=== PATIENT | male | born 1985 | race Caucasian/White ===

== ENCOUNTER 2023-11-06 07:05 | Day surgery (SDC) | payer OTHER ==
[2023-10-26 12:31] LABS: BASOPHILS # (AUTO) 0.1 X10'3 (0-0.2); EOSINOPHILS # (AUTO) 0.3 X10'3 (0-0.9); MEAN CORPUSCULAR HGB CONC 33.6 g/dL (33.0-36.5); PRE OP HEMOGLOBIN 15.7 g/dL (14.0-17.9); RED CELL DISTRIBUTION WIDTH 13.8 % (11.5-14.5)
[2023-10-26 12:36] LABS: BASOPHILS % (AUTO) 0.9 % (0-1); EOSINOPHILS % (AUTO) 3.9 % (0-6); LYMPHOCYTES # (AUTO) 1.5 X10'3 (1.1-4.8); LYMPHOCYTES % (AUTO) 21.3 % (21-51); MEAN CORPUSCULAR HEMOGLOBIN 29.2 PG (27.0-31.0); MEAN CORPUSCULAR VOLUME 86.9 FL (78-98); MEAN PLATELET VOLUME 8.2 FL (7.4-10.4); MONOCYTES # (AUTO) 0.4 X10'3 (0-0.9); MONOCYTES % (AUTO) 5.2 % (2-12); NEUTROPHILS # (AUTO) 4.9 X10'3 (1.8-7.7); NEUTROPHILS % (AUTO) 68.7 % (42-75); PRE OP HEMATOCRIT 46.8 % (42.0-52.0); PRE OP PLATELET COUNT 157 X10'3 (140-440); PRE OP WHITE BLOOD COUNT 7.1 10'3 (4.8-10.8); RED BLOOD COUNT 5.39 X10'6 (4.70-6.10)
[2023-10-26 12:58] LABS: ALBUMIN 3.9 G/DL (3.4-5.0); ALBUMIN/GLOBULIN RATIO 1.1 (1.1-1.5); ALKALINE PHOSPHATASE 69 IU/L (46-116); BLOOD UREA NITROGEN 13 MG/DL (7-18); BUN/CREATININE RATIO 15.3 (10.0-20.0); CALCIUM 9.4 MG/DL (8.5-10.1); CHLORIDE 108 MMOL/L (99-107); CREATININE 0.85 MG/DL (0.60-1.10); PRE OP ALT 35 U/L (30-65); PRE OP ANION GAP 6 (8-16); PRE OP AST 18 U/L (10-37); PRE OP BILIRUB, TOTAL 0.4 MG/DL (0.0-1.0); PRE OP GLUCOSE 105 MG/DL (70-104); PRE OP POTASSIUM 4.1 MMOL/L (3.4-5.1); PRE OP SODIUM 137 MMOL/L (135-145); TOTAL CARBON DIOXIDE 23.1 MMOL/L (24-32); TOTAL PROTEIN 7.4 G/DL (6.4-8.2); eGFR > 90 ML/MIN
[~2023-11-06] VITALS: Ht 185.4 cm; Wt 164.8 kg
[2023-11-06] MEDS: ceFAZolin inj. 3,000 MG in normal saline 100ml IV soln 100 ML IV ONE (05:30)
[~2023-11-06 07:05] MED LIST: ALBU18HF2 INH; BACL10TA2 PO; BUPIVAcaine/PF 2.5mg/ml (0.25%) 10ml vial ONE; GABA300C PO; LOSA50TA64 PO; albuterol 2.5 MG/3 ML nebule NEB ONE; ceFAZolin inj. 3,000 MG in normal saline 100ml IV soln 100 ML IV ONE; famotidine 20mg tablet PO ONE; ringers solution, lacted 1,000 ML IV SCH
[2023-11-06 07:13] VITALS: BP 156/100; PULSE 61; RESP 18; TEMP 98.7; O2SAT 96
[2023-11-06] MEDS ORDERED: LIDOcaine 2% (20mg/ml) 5ml vial ONE ×3 (07:13→10:17)
[2023-11-06] MEDS: famotidine 20mg tablet PO ONE (08:20)
[2023-11-06] MEDS: ringers solution, lacted 1,000 ML IV SCH (08:21)
[2023-11-06] MEDS ORDERED: fentaNYL/PF 50MCG/1 ML 2ML syringe IV PRN ×2 (09:05)
[2023-11-06] MEDS ORDERED: hydrALAZINE 20mg/ml inj. IV PRN (09:05)
[2023-11-06] MEDS ORDERED: labetalol 20mg/4ml (5mg/ml) syringe IV PRN (09:05)
[2023-11-06] MEDS ORDERED: ondansetron/PF 4mg/2ml inj IV PRN (09:05)
[2023-11-06] MEDS ORDERED: morphine 4 MG/ML inj SYRINge IV PRN (09:05)
[2023-11-06] MEDS ORDERED: ringers solution, lacted 1,000 ML IV SCH (09:05)
[2023-11-06] MEDS ORDERED: morphine 2 MG/ML inj. syringe IV PRN (09:05)
[2023-11-06] MEDS ORDERED: LIDOcaine 0.5% (5mg/ml) 50ml vial ONE (10:17)
[2023-11-06] MEDS ORDERED: propofol inj 20 ML IV ONE (10:17)
[2023-11-06] MEDS ORDERED: ketorolac trometh. 30mg/ml inj. ONE (10:17)
[2023-11-06] MEDS ORDERED: fentaNYL/PF 50MCG/1 ML 2ML syringe ONE ×2 (10:18→11:00)
[2023-11-06] MEDS ORDERED: MIDAZolam 1mg/ml 10ml vial ONE ×2 (10:18→11:00)
[2023-11-06] MEDS ORDERED: acetaminophen 1,000mg/100ml IV 100 ML IV ONE (10:37)
[2023-11-06] MEDS: BUPIVAcaine/PF 2.5mg/ml (0.25%) 10ml vial ONE (10:42)
[2023-11-06] MEDS ORDERED: BUPIVAcaine/PF 2.5mg/ml (0.25%) 10ml vial ONE (11:33)
[2023-11-06 11:41] VITALS: BP 133/77; PULSE 62; RESP 16; O2SAT 92
[2023-11-06 11:50] VITALS: BP 122/72; PULSE 70; RESP 11; O2SAT 94
[2023-11-06 12:00] VITALS: BP 124/72; PULSE 68; RESP 12; O2SAT 96
[2023-11-06 12:10] VITALS: BP 122/69; PULSE 65; RESP 14; O2SAT 97
== END 2023-11-06 12:16 | disposition home or self-care (01) ==
LOC: PAS 07:05
PROVIDERS: ATTEND Orthopaedic Surgery Hand Surgery
DX: S54.12XA Injury of median nerve at forearm level, left arm, initial encounter (principal); I10 Essential (primary) hypertension; E66.01 Morbid (severe) obesity due to excess calories; J45.909 Unspecified asthma, uncomplicated; I20.9 Angina pectoris, unspecified; K21.9 Gastro-esophageal reflux disease without esophagitis; I25.2 Old myocardial infarction; Z79.899 Other long term (current) drug therapy; Z98.890 Other specified postprocedural states; Z68.42 Body mass index [BMI] 45.0-49.9, adult; X58.XXXA Exposure to other specified factors, initial encounter; Y93.89 Activity, other specified; Y92.89 Other specified places as the place of occurrence of the external cause; Y99.8 Other external cause status
CPT/HCPCS: 36415; 64704; 64912; 80053; 85025; 93005; C1762; C1763; J0131; J0690; J1885; J2250; J2704; J3010; J3490; J7030; J7120; Z7506; Z7508; Z7512; A4215; A4618; A6449; A7000